=== PATIENT | female | born 1965 | race Caucasian/White ===

== ENCOUNTER 2017-11-28 15:50 | Emergency (ER) | payer OTHER ==
[2017-11-28] MEDS ORDERED: LIDOCAINE 1% PF 2 ML VIAL. (16:32)
[2017-11-28] MEDS: cefTRIAXone IM 1 GM VIAL IM (16:39)
[2017-11-28 17:03] LABS: BILIRUBIN,URINE NEGATIVE (NEG); CLARITY,URINE CLEAR; COLOR,URINE YELLOW; GLUCOSE,URINE NEGATIVE (NEG); NITRITE,URINE NEGATIVE (NEG); PROTEIN,URINE NEGATIVE (NEG-TRACE); UROBILINOGEN,URINE 0.2 mg/dL (0.2 mg/dL)
[2017-11-28 17:45] LABS: BACTERIA,URINE 0 /HPF (0-FEW); SQUAMOUS EPITHELIAL CELL,UR FEW /LPF
== END 2017-11-28 18:02 | disposition home or self-care (01) ==
LOC: ER 15:50
DX: N21.1 Calculus in urethra (principal); N39.0 Urinary tract infection, site not specified; T19.0XXA Foreign body in urethra, initial encounter; Z88.0 Allergy status to penicillin; Z88.2 Allergy status to sulfonamides; X58.XXXA Exposure to other specified factors, initial encounter; Y93.89 Activity, other specified; Y99.8 Other external cause status; Y92.89 Other specified places as the place of occurrence of the external cause
CPT/HCPCS: 52310; 81001; 87086; 96372; 99284-25; J0696